=== PATIENT | male | born 1990 | race Caucasian/White ===

== ENCOUNTER 2021-12-23 22:22 | Emergency (ER) | payer OTHER, SELFPAY ==
[2021-12-23 22:30] VITALS: BP 116/69; PULSE 86; RESP 20; TEMP 36.7; O2SAT 99; BMI 36.0
== END 2021-12-24 01:17 | disposition left against medical advice (07) ==
PROVIDERS: Emergency Provider Emergency Medicine; PCP Internal Medicine
DX: R09.89 Other specified symptoms and signs involving the circulatory and respiratory systems (principal); F12.90 Cannabis use, unspecified, uncomplicated
CPT/HCPCS: 99281

== ENCOUNTER 2024-01-22 13:45 | Outpatient (AMB) | payer OTHER, SELFPAY ==
[2024-01-22 15:12] VITALS: BP 122/80; PULSE 72; O2SAT 98; BMI 37.7
--- NOTE | 2024-01-22 15:12 | AM.OFFWIN_ITS ---
Intake Vital Signs 01/22/24 15:12 Height 5 ft 7 in Weight 241 lb BMI 37.7 BP 122/80 Blood Pressure Location Lt brachial Position Sitting Pulse 72 Pulse Source Pulse Oximeter Pulse Oximetry (%) 98 Oxygen Delivery Method Room Air Intake Visit Reasons: EP RT testicle pain Intake Note: Patient here for right testicle pain that has been present for about 4 days. Patient Tobacco Use Status: Current someday Tobacco user Allergies clomipramine Allergy (Intermediate, Verified 01/22/24 15:13) inadequate response divalproex sodium [Depakote] Allergy (Intermediate, Verified 01/22/24 15:13) weight gain Seasonal Allergies Allergy (Intermediate, Verified 01/22/24 15:13) runny nose, cough Do you need a note to return to daycare/school/sports/work: Yes HPI EP RT testicle pain HPI Details This note is constructed using voice recognition software. While every effort has been made to ensure accuracy, accounting methods analyst errors may have been included. The patient is a 33 year old male who presents to the clinic today with right posterior testicle pain for the past 4 days intermittently. He reports the pain to be mild in nature, and worsened if he touches the area. He is not sexually active for several years. He has no discharge from the penis, no penile lesions. He has not been injured to the area. He denies fever, chills, joint pain, change in urine or bowel pattern. [facility] Medical History (Updated 05/06/23 @ 08:46 by Enrico Stratton PA-C) Minimal depression ADD (attention deficit disorder) Insomnia Morbid obesity Surgical History No pertinent past surgical history Family History Father Diabetes Mother No problems noted. Maternal Grandmother Diabetes Foot amputation status Paternal Grandfather Leukemia Paternal Uncle Pancreatic cancer Family/Other Substance use disorder Social History (Updated 12/26/20 @ 16:50 by Lesley Bowen MD) Housing: House Alcohol intake: current Alcohol intake frequency: a few times a month Alcohol type: beer and hard liquor Patient Tobacco Use Status: Current someday Tobacco user Tobacco use type: Cigarette Cigarettes Per Day: 10 e-Cigarette/Vaping Use: Never Used Second Hand Smoke Exposure: No service: No Current occupational status: unemployed Review of Systems Const All systems reviewed & are unremarkable except as noted in HPI and below Physical Exam Vital Signs: Last Vital Signs Pulse 72 01/22/24 15:12 BP 122/80 01/22/24 15:12 Pulse Ox 98 01/22/24 15:12 Oxygen Delivery Method Room Air 01/22/24 15:12 BMI result Body Mass Index 37.7 Const General: cooperative, healthy appearing, comfortable, no acute distress and well developed Orientation/consciousness: patient oriented x3 Limitations: no limitations HEENT Head: Yes normal to inspection Ears: hearing grossly normal bilaterally General nose exam: Normal external nose present Face and sinus: Yes normal facial exam Eyes General: appearance normal, both eyes and all related structures Neck Neck: Yes normal visual inspection and Yes full ROM Resp Effort & Inspection: normal respiratory effort and able to speak in complete sentences Penis: normal penis Scrotum: scrotum normal and testes descended bilaterally Testes: no epidiymal masses and epididymal tenderness on the right Skin General skin exam: no rashes or lesions noted Neuro General: patient oriented x3 Assessment & Plan Assessment & Plan (1) Epididymitis: Code(s): N45.1 - Epididymitis Plan: Antibiotics sent for non sexually active male with epididymitis. Advised patient to try NSAIDs and ice for symptomatic management. Advised ER with sudden acute worsening of pain. Advised follow up with worsening or failure to resolve. Plan See above for full details and plan. Medications: New levofloxacin 500 mg PO DAILY 10 days 10 tabs 0RF Coding Level of Care Code Est Pt Level 3 (91897) Diagnoses Epididymitis N45.1
== END 2024-01-22 16:06 | disposition home or self-care (01) ==
PROVIDERS: PCP Internal Medicine; Visit Provider Registered Nurse
DX: N45.1 Epididymitis (principal)

== ENCOUNTER → 2024-01-22 13:45 | Outpatient (BNVA) | payer OTHER, SELFPAY | PROVIDERS: PCP Internal Medicine; Visit Provider Registered Nurse | DX: N45.1 Epididymitis (principal) | CPT/HCPCS: 99212 ==

== ENCOUNTER → 2024-09-04 09:25 | Outpatient (BNV) | payer OTHER, SELFPAY | PROVIDERS: PCP Internal Medicine; Visit Provider Radiology Diagnostic Radiology | DX: R10.9 Unspecified abdominal pain (principal); R15.2 Fecal urgency; Z80.0 Family history of malignant neoplasm of digestive organs; K59.00 Constipation, unspecified | CPT/HCPCS: 74018 ==

== ENCOUNTER 2024-09-04 09:49 | Emergency (ER) | payer OTHER, SELFPAY ==
--- NOTE | ~2024-09-04 | XR_ITS ---
EXAMINATION: XR ABDOMEN KUB CLINICAL INDICATION: ? constipation COMPARISON: None available. TECHNIQUE: AP view of the abdomen. FINDINGS: Bowel gas pattern is normal/nonspecific. There is no focally dilated loop. There is no significant stool burden. No organomegaly or large abdominal mass. No abnormal soft tissue calcifications identified. Imaged lung bases are clear. No osseous abnormalities. XR/XR KUB IMPRESSION: Normal KUB radiograph. Electronically signed by: Sinan Gonzalez MD 09/04/2024 10:31 AM EDT
--- NOTE | ~2024-09-04 | CT_ITS ---
EXAMINATION: CT ABDOMEN AND PELVIS WITH CONTRAST CLINICAL INFORMATION: Abdominal pain, familial hx of colon cancer, increased urgency for bowel movements COMPARISON: X-ray September 04, 2024, same day TECHNIQUE: Multidetector volumetric images were obtained from the superior aspect of the liver through the pubic symphysis following administration 85 mL of Omnipaque 350 intravenous contrast. Sagittal and coronal reformatted images were obtained on the technologist's workstation. Oral contrast: No This CT examination was performed using dose optimization techniques as appropriate, variously including the following: *Automated exposure control *Adjustment of mA and/or kV according to patient size (this includes techniques or standardized protocols for targeted exams where dose is matched to indication/reason for exam; i.e. extremities or head) *Use of iterative reconstruction technique DLP: 596 mGY*cm FINDINGS: LUNG BASES: The visualized lung bases are unremarkable. LIVER, GALLBLADDER, AND BILIARY TREE: The liver is normal in size, shape, and attenuation. No focal hepatic lesion or biliary ductal dilatation is present. The gallbladder is unremarkable with no evidence of radiopaque gallstones, gallbladder wall thickening, or obvious pericholecystic inflammatory changes. PANCREAS: Unremarkable. SPLEEN: Unremarkable. ADRENAL GLANDS: Unremarkable. KIDNEYS AND URETERS: The kidneys are normal in size, shape, and attenuation. No hydronephrosis, hydroureter, or calculi seen. No perinephric stranding. BLADDER: Unremarkable. GASTROINTESTINAL TRACT: A few scattered pseudodiverticula are present in the descending colon. The appendix is visualized and within normal limits. ABDOMINAL WALL: No significant hernia is appreciated. LYMPH NODES: Normal. VASCULAR: Unremarkable. PELVIC VISCERA: Unremarkable. OSSEOUS STRUCTURES: Unremarkable. CT/CT abdomen pelvis w IV con IMPRESSION: Unremarkable CT abdomen and pelvis. CT is not screening method for colon cancer. Minimal pseudodiverticula in the descending colon. Fleischner guidelines were followed. Electronically signed by: Renzo Watson MD 09/04/2024 12:21 PM EDT
[2024-09-04 09:55] VITALS: BP 118/67; PULSE 74; RESP 16; TEMP 36.3; O2SAT 97; BMI 32.1
--- NOTE | 2024-09-04 10:04 | ED_ITS ---
HPI - General Adult General Chief complaint: General Medical Stated complaint: Constipation Time Seen by Provider: 09/04/24 10:04 Source: patient Mode of arrival: ambulatory Limitations: no limitations History of Present Illness ED Provider: Hannah Hudson PA-C HPI narrative: Patient is a 34 year old male with past medical history of ADD, insomnia, and depression presenting to the ER on 09/04 with chief complaint of constipation. His last bowel movement was 4 days ago and normal. He has been passing gas daily. He has been more constipated than usual for the past 2 weeks. He does have recent dietary change within this time frame; he has been eating a lot of [employer] (burgers and fries) where he works and reports a diet low in fiber in the past few weeks. He denies past history of abdominal surgeries. He has noticed new bright red on toilet tissue for the past few weeks but he feels this is because of wiping too hard. He is unsure if he has hemorrhoids. He reports family history of colon tumor in his mother. He denies melena, gross blood in his stools, change in stool caliber, nausea, vomiting, diarrhea, abdominal pain, fevers, chills, or any other symptoms. Relieving factors: none Exacerbating factors: none Associated symptoms: denies other symptoms Treatments prior to arrival: none Related Data Previous Rx's ?Medication ?Instructions ?Recorded bupropion HCl 150 mg 24 hr tablet, 150 mg PO QAM 90 da ys #90 tabs 12/26/20 extended release clonidine HCl 0.1 mg tablet 0.1 mg PO BEDTIME 90 days #90 tabs 12/26/20 clotrimazole-betamethasone 1 1 appl topical BID 30 day s #45 07/17/23 %-0.05 % topical cream grams levofloxacin 500 mg tablet 500 mg PO DAILY 10 days #10 tabs 01/22/24 Allergies Allergy/AdvReac Type Severity Reaction Status Date / Time clomipramine Allergy Intermediate inadequate Verified 09/04/24 09:56 response divalproex sodium (Depakote) Allergy Intermediate weight gain Verified 09/04/24 09:56 Seasonal Allergies Allergy Intermediate runny Verified 09/04/24 09:56 nose, cough Review of Systems 2 Constitutional: Constitutional: Reports no additional constitutional complaints, Denies chills, Denies fever(s) and Denies night sweats Eyes: Eyes: Reports no additional eye complaints, Denies blurry vision, Denies change in vision, Denies diplopia, Denies eye discharge, Denies loss of vision and Denies eye pain ENT: Denies dizziness Cardiovascular: Cardiovascular: Reports no additional cardiovascular complaints, Denies chest pain, Denies lightheadedness, Denies Loss of Consciousness and Denies dyspnea Respiratory: Respiratory: Reports no additional respiratory complaints and Denies dyspnea Gastrointestinal: Gastrointestinal: Reports no additional gastrointestinal complaints, Reports abdominal pain, Denies melena, Denies hematochezia, Denies change in bowel habits, Reports change in stool character and Reports constipation Genitourinary: Genitourinary: Reports no additional male genitourinary complaints, Denies hematuria, Denies oliguria, Denies difficulty urinating, Denies dysuria, Denies urinary frequency, Denies urinary hesitancy, Denies urinary incontinence and Denies urinary urgency Musculoskeletal: Musculoskeletal: Reports no additional musculoskeletal complaints, Denies numbness and Denies tingling Neurologic: Denies dizziness, Denies loss of vision, Denies numbness and Denies tingling Psychiatric: Psychiatric: Reports no additional psychiatric complaints Endocrine: Endocrine: Reports no additional endocrine complaints Hematologic/Lymphatic: Hematologic/Lymphatic: Reports no additional hematologic/lymphatic complaints Allergic/Immunologic: Allergic/Immunologic: Reports no additional allergic/immunologic complaints [facility] Past Medical History Attestation statement: The following information was validated with the patient. Source: old records reviewed and nursing notes reviewed Medical History Minimal depression ADD (attention deficit disorder) Insomnia Morbid obesity Surgical History No pertinent past surgical history Family History Family History Father Diabetes Mother No problems noted. Maternal Grandmother Diabetes Foot amputation status Paternal Grandfather Leukemia Paternal Uncle Pancreatic cancer Family/Other Substance use disorder Social History Social History Housing: House Alcohol intake: current Alcohol intake frequency: a few times a month Alcohol type: beer and hard liquor Patient Tobacco Use Status: Current someday Tobacco user Tobacco use type: Cigarette Cigarettes Per Day: 10 e-Cigarette/Vaping Use: Never Used Second Hand Smoke Exposure: No Advance Directives: No Advance Directives Information Provided: Yes Do you have a plan to hurt others: No Plan service: No Current occupational status: unemployed Physical Exam ED Vital Signs: Vital Signs - 24 hr 09/04/24 09:55 09/04/24 12:00 09/04/24 13:27 Temperature 97.3 F 97.8 F 97.8 F Pulse Rate 74 58 58 Respiratory Rate 16 18 18 Blood Pressure 118/67 127/74 127/74 Pulse Oximetry 97 99 99 Oxygen Delivery Method Room Air Room Air Room Air BMI result Body Mass Index 32.1 Const General: cooperative, no acute distress, alert and awake Nutritional Appearance: well nourished Orientation/consciousness: patient oriented x3 HENMT Head: Yes normal to inspection and Yes atraumatic Ears: hearing grossly normal bilaterally and external ears normal General nose exam: Normal external nose present, no nasal discharge noted and no epistaxis Face and sinus: Yes normal facial exam, No abrasion and No laceration Mouth: Normal oral and palatal mucosa present, no drooling and no muffled voice Eyes General: appearance normal, both eyes and all related structures Periorbital: periorbital findings normal Eyelids: Yes eyelids normal Conjunctivae: conjunctivae normal Pupils: Equal, round and reactive pupils present EOM: EOMs intact bilaterally Neck Neck: Yes normal visual inspection, Yes full ROM and Yes no lymphadenopathy Resp Effort & Inspection: normal respiratory effort and able to speak in complete sentences GI Palpation (GI): Soft to palpation, nontender, no guarding and not rigid Neuro General: patient oriented x3, moves all extremities and CN's II-XI intact bilaterally Cranial nerves: Yes Equal, round and reactive pupils present Cognition (Neuro): normal cognition Extrem General: Yes normal to inspection, Yes full ROM and Yes capillary refill normal Psych Appearance: grossly normal Mental Status: mental status grossly normal Affect: normal affect Attitude: cooperative Thought process: Normal thought process present Thought content: Normal thought content present Insight: Good insight present (Psych) Medications Administered Discontinued Medications Generic Name Dose Route Start Last Admin Trade Name Freq PRN Reason Stop Dose Admin Iohexol 100 ml 09/04/24 12:04 09/04/24 12:05 Iohexol 350 Mg/Ml 100 Ml Infus..Btl IV 09/04/24 12:05 85 ml ONCE ONE Administration Medical Decision Making Medical Decision Making [facility] Narrative: Patient is a 34 year old male with past medical history of ADD, insomnia, and depression presenting to the ER on 09/04 with chief complaint of constipation. Patient's physical exam was unremarkable. Patient's blood work was unremarkable. Patient's KUB x-ray showed no acute process. Patient's CT abdomen/pelvis showed no acute process and of note the reading radiologist commented that a CT abdomen/pelvis is not the correct modality for the diagnosis of colon cancer. I explained to the patient that while a CT scan of the abdomen is not the most ideal for diagnosis of colon cancer, it does rule out immediate obstruction that could be secondary to a large tumor / tumor burden and that is why we obtained the study. I explained my physical exam findings as well as all test results to the patient. I answered all questions asked by the patient. I stressed the importance of the patient taking his medication as directed (either prescribed or as the over the counter packaging recommends). I stressed the importance of the patient following up with his primary care provider and a GI specialist - specifically to get a colonoscopy (the more definitive colon cancer testing modality). I stressed the importance of the patient returning to the emergency department immediately if his symptoms were to worsen or if he were to develop any dizziness, shortness of breath, difficulty breathing, chest pain, blurry vision, loss of vision, nausea, vomiting, abdominal pain, fever, chills, back pain, or any other complaints. Patient verbalized agreement and understanding with this treatment plan and discharge. Differential Diagnosis Differential Diagnoses: The differential diagnosis associated with the presentation includes Abdominal pain Bowel obstruction Colitis Admission/Observation Consideration of admission/observation: Escalation of care including admission/observation considered Patient would have been admitted to the hospital had his work up had any findings where hospital admission was appropriate and his clinical presentation warranted hospital admission. Lab Data [facility] Lab Attestation statement: I reviewed the patient's lab results. My interpretation of these results are in the MDM Rationale portion of this note. 09/04/24 11:08 09/04/24 11:08 Labs: Lab Results 09/04/24 Range/Units 11:08 WBC 7.6 (4.8-10.8) X10*3/uL RBC 4.48 L (4.60-5.80) X10*6/uL Hgb 14.5 (14.0-18.0) g/dl Hct 40.2 L (42.0-52.0) % MCV 89.7 (80.0-98.0) fL MCH 32.4 (27.0-33.0) pg MCHC 36.1 H (31.0-36.0) g/dl RDW 12.0 (11.0-16.0) % Plt Count 242 (160-400) X10*3/uL MPV 9.1 L (9.4-12.4) fL Immature Gran % (Auto) 0.3 (0.0-0.4) % Neut % (Auto) 63.0 (45-73) % Lymph % (Auto) 20.8 (20-40) % [place] % (Auto) 8.0 (2-11) % Eos % (Auto) 6.8 H (0-4) % Baso % (Auto) 1.1 (0-2) % Lymph # (Auto) 1.6 (1.2-4.9) X10*3/uL [place] # (Auto) 0.6 (0.1-1.2) X10*3/uL Eos # (Auto) 0.5 H (0.0-0.4) X10*3/uL Baso # (Auto) 0.1 (0.0-0.2) X10*3/uL Abs Immat Gran (auto) 0.02 (0.00-0.03) X10*3/uL Absolute Neuts (auto) 4.8 (2.0-8.3) x10*3/uL Absolute Nucleated RBC 0.000 (0.0-0.012) X10*3/uL Nucleated RBC % (auto) 0.0 (0.0-0.2) /100WBC Sodium 142 (135-145) mmol/L Potassium 4.0 (3.3-5.1) mmol/L Chloride 110 H (96-108) mmol/L Carbon Dioxide 25 (22-29) mmol/L Anion Gap 11 L (12-20) BUN 19 H (9-16) mg/dL Creatinine 0.81 (0.5-1.4) mg/dL Estim Creat Clear Calc 142.3 Estimated GFR > 60 Random Glucose 103 (60-115) mg/dL Calcium 9.2 (8.4-10.2) mg/dL Total Bilirubin 0.3 (0.0-1.0) mg/dL AST 27 (5-37) U/L ALT 19 (0-40) U/L Alkaline Phosphatase 75 (39-117) U/L Total Protein 6.5 (6.5-8.0) g/dL Albumin 4.5 (3.5-5.0) g/dL Independent Interpretation I performed an independent interpretation of an: Plain X-Ray and CT Scan Interpretation: My interpretation is in agreement with the radiologist's impression of these imaging studies. L EXAMINATION: XR ABDOMEN KUB CLINICAL INDICATION: ? constipation COMPARISON: None available. TECHNIQUE: AP view of the abdomen. FINDINGS: Bowel gas pattern is normal/nonspecific. There is no focally dilated loop. There is no significant stool burden. No organomegaly or large abdominal mass. No abnormal soft tissue calcifications identified. Imaged lung bases are clear. No osseous abnormalities. XR/XR KUB IMPRESSION: Normal KUB radiograph. Electronically signed by: Sinan Gonzalez MD 09/04/2024 10:31 AM EDT Dictated By: Sinan Gonzalez MD Signed By: Electronically signed by Sinan Gonzalez MD 09/04/24 1031 Report Number: [id number]: Total DLP = 596.00 mGy-cm EXAMINATION: CT ABDOMEN AND PELVIS WITH CONTRAST CLINICAL INFORMATION: Abdominal pain, familial hx of colon cancer, increased urgency for bowel movements COMPARISON: X-ray September 04, 2024, same day TECHNIQUE: Multidetector volumetric images were obtained from the superior aspect of the liver through the pubic symphysis following administration 85 mL of Omnipaque 350 intravenous contrast. Sagittal and coronal reformatted images were obtained on the technologist's workstation. Oral contrast: No This CT examination was performed using dose optimization techniques as appropriate, variously including the following: *Automated exposure control *Adjustment of mA and/or kV according to patient size (this includes techniques or standardized protocols for targeted exams where dose is matched to indication/reason for exam; i.e. extremities or head) *Use of iterative reconstruction technique DLP: 596 mGY*cm FINDINGS: LUNG BASES: The visualized lung bases are unremarkable. LIVER, GALLBLADDER, AND BILIARY TREE: The liver is normal in size, shape, and attenuation. No focal hepatic lesion or biliary ductal dilatation is present. The gallbladder is unremarkable with no evidence of radiopaque gallstones, gallbladder wall thickening, or obvious pericholecystic inflammatory changes. PANCREAS: Unremarkable. SPLEEN: Unremarkable. ADRENAL GLANDS: Unremarkable. KIDNEYS AND URETERS: The kidneys are normal in size, shape, and attenuation. No hydronephrosis, hydroureter, or calculi seen. No perinephric stranding. BLADDER: Unremarkable. GASTROINTESTINAL TRACT: A few scattered pseudodiverticula are present in the descending colon. The appendix is visualized and within normal limits. ABDOMINAL WALL: No significant hernia is appreciated. LYMPH NODES: Normal. VASCULAR: Unremarkable. PELVIC VISCERA: Unremarkable. OSSEOUS STRUCTURES: Unremarkable. CT/CT abdomen pelvis w IV con IMPRESSION: Unremarkable CT abdomen and pelvis. CT is not screening method for colon cancer. Minimal pseudodiverticula in the descending colon. Fleischner guidelines were followed. Electronically signed by: Renzo Watson MD 09/04/2024 12:21 PM EDT RP Dictated By: Renzo Watson MD Signed By: Electronically signed by Renzo Watson MD 09/04/24 1221 Radiology Impression Discussion of test interpretation with radiology: I have reviewed the radiologist's reading. Discharge Plan Discharge Clinical Impression: Abdominal pain Qualifiers: Abdominal location: generalized Qualified Code(s): R10.84 - Generalized abdominal pain Patient Disposition: Home, Self-Care Instructions: Abdominal Pain (ED) Additional Instructions: Follow up with your primary care provider and a GI specialist. Return to the emergency department immediately if your symptoms worsen or if you develop any numbness, tingling, dizziness, shortness of breath, difficulty breathing, chest pain, blurry vision, loss of vision, nausea, vomiting, abdominal pain, fever, chills, back pain, or any other complaints. Please see the information below about our Patient Portal. If you are not yet enrolled in the [facility] Patient Portal, you will receive an enrollment email invitation following your visit to any [facility] setting. You may also self-enroll in the Patient Portal by visiting our website: [email or web address] The following information is required to access the Patient Portal: - Your [facility] Medical Record Number - Your personal home email address (must match what is in your electronic medical record, Registration staff can assist with this) - Name - Date of Capabilities of the Patient Portal: - Message some providers - View upcoming appointments - Access your health summary, medical history, and visit history - View current conditions and allergies - View procedure and lab results - View your medications, including guidelines, side effects, and precautions - Complete pre-appointment questionnaires requested by your provider - Ready summary reports of your office visits and procedures To access the Patient Portal Mobile Latisha, follow these directions: - Search [employer] in the Latisha Store or [employer] Store - Download the Latisha - Search for [facility] - Enter your login/password Prescriptions: No Action clotrimazole-betamethasone 1-0.05 % cream 1 appl topical BID 30 Days Qty: 45 0RF clonidine HCl 0.1 mg tablet 0.1 mg PO BEDTIME 90 Days Qty: 90 1RF bupropion HCl 150 mg tablet extended release 24 hr 150 mg PO QAM 90 Days Qty: 90 1RF levofloxacin 500 mg tablet 500 mg PO DAILY 10 Days Qty: 10 0RF Referrals: [facility] [Provider Group, Gastroenterology] Lesley Blackwell MD [Primary Care Provider, Internal Medicine] Stand Alone Forms: Work/School Release Interventions: ED Discharge Assessment Last Done: 09/04/24 13:27 Discharge Date/Time: 09/04/24 13:27 Print Language: Amharic
--- OUTSIDE RECORDS SUMMARY | 2024-09-04 10:54 | XMS_ITS | Clinical Summary ---
[place] [address] Care Team Providers Care Terminal Operator Name Role Phone Unknown Primary Care Provider Unavailabl e Social History Tobacco Use Types Packs/Day Years Used Date Smoking Tobacco: Never Assessed Sex and Gender Information Value Date Recorded Sex Assigned at Not on file Legal Sex Male 7:25 AM EST Gender Identity Not on file Sexual Orientation Not on file Last Filed Vital Signs Vital Sign Reading Time Taken Comments Blood Pressure 122/66 06/29/2011 4:00 PM EDT Sourced from [employer] Conversion Pulse - - Temperature - - Respiratory Rate - - Oxygen Saturation - - Inhaled Oxygen Concentration - - Weight 126.1 kg (278 lb) 06/29/2011 4:0 0 PM EDT Sourced from [employer] Conversion Height 167.6 cm (5' 6 ) 06/05/2010 3:00 PM EDT Sourced from [employer] Conversion Body Mass Index 44.87 06/05/2010 3:00 PM EDT Plan of Treatment Health Maintenance Due Date Last Done Comments HIV screen 2010 Hepatitis C Screening 2010 Hepatitis B vaccine (0-59 yrs) and Risk (1) 04/24/2011 Tetanus/Diphtheria/Pertussis Vaccines (1 - Tdap) 04/23 Covid-19 Vaccine (1 - 2023-25 season) 2023 Influenza (Flu) vaccine (1 o f 1 - Influenza standard series) 10/19/2024 Care Teams Terminal Operator Relationship Specialty Start Date End Date Unknown None PCP - General 06/24/17
--- OUTSIDE RECORDS SUMMARY | 2024-09-04 10:54 | XMS_ITS | Clinical Summary ---
Author Organization [facility] Address [address] [place] [id number] Phone Care Team Providers Care [employer] Obie[employer] Developer Name Role Phone Unavailable Primary Care Provider Unavailabl e Immunizations Immunization Administration Dates Next Due DTP 09/27/1997, 4,1992,08/27,1992 H1N1 06/21/2009 Hep B, ped/adol 1992,1992,1992 Hib (PRP-T) 07/28/1993, 3,1992,06/23 IPV 09/27/1997, 4,1992,06/23 MMR 04/27/1996,07/28/1993 Meningococcal Conj (Menactra) MCV4P 10/25/2006 Td (adult) (MBL), 2 Lf tetan us toxoid, PF, adsorbed 12/06/2003 Tdap 11/07/2007 Varicella 04/27/1996 Family History Relation Name Status Comments Brother Alive Brother: ADD/AD HD Cousin Cousin: Asthma Father Alive Father: Alive a nd well Maternal Grandfather Materna l grandfather: Diabetes mellitus Maternal Grandmother Materna l grandmother: Diabetes mellitus, Obesity Mother Alive Mother: Alive a nd well Paternal Grandfather Paterna l uncle: Asthma, Diabetes mellitus Paternal Grandmother Paterna l grandmother: Diabetes mellitus Social History Tobacco Use Types Packs/Day Years Used Date Smoking Tobacco: Never Assessed Sex and Gender Information Value Date Recorded Sex Assigned at Not on file Legal Sex Male 4:34 PM EDT Gender Identity Not on file Sexual Orientation Not on file Last Filed Vital Signs Vital Sign Reading Time Taken Comments Blood Pressure 124/80 06/21/2009 12:00 AM EDT Pulse - - Temperature - - Respiratory Rate - - Oxygen Saturation - - Inhaled Oxygen Concentration - - Weight 115 kg (253 lb) 07/27/2009 12:00 AM EDT Height 168.9 cm (5' 6.5 ) 06/21/2009 12:00 AM ED T Body Mass Index - - Plan of Treatment Health Maintenance Due Date Last Done Comments Varicella Vaccines (2 of 2 - 2-dose childhood series) 07/20/1996 04/27/1996 DTaP,Tdap,and Td Vaccines (7 - Td or Tdap) 11/06/2017 11/07/2007, 12/06/2003, 09/27/1997, Additional history exists COVID-19 Vaccine (2023- season) 2023 Influenza Vaccines (#1) 2024 Hepatitis B Vaccines Completed 1992, 1992, 1992 HIB Vaccines Completed 07/28/1993, 10/19, 1992, Additional history exists MMR Vaccines Completed 04/27/1996, 07/28/1993 IPV Vaccines Completed 09/27/1997, 10/19, 1992, Additional history exists Meningococcal Vaccine Aged Out 10/25/2006 No edouard kate eligible based on patient's age to complete this topic HPV Vaccines Aged Out No longer eligi ble based on patient's age to complete this topic Hepatitis A Vaccines Aged Out No long er eligible based on patient's age to complete this topic Men B Vaccine Aged Out No longer elig ible based on patient's age to complete this topic Pneumococcal Vaccine Aged Out No long er eligible based on patient's age to complete this topic
[2024-09-04 11:14] LABS: MANUAL DIFF FLAG NO
[2024-09-04 11:19] LABS: Hematocrit 40.2 % (42.0-52.0); Hemoglobin 14.5 g/dl (14.0-18.0); Imm Gran Abs Auto 0.02 X10*3/uL (0.00-0.03); Imm Gran Pct Auto 0.3 % (0.0-0.4); Lymphocytes Absolute Auto 1.6 X10*3/uL (1.2-4.9); Mean Corpuscular HGB Conc 36.1 g/dl (31.0-36.0); Mean Corpuscular Hemoglobin 32.4 pg (27.0-33.0); Mean Corpuscular Volume 89.7 fL (80.0-98.0); NRBC Abs Auto 0.000 X10*3/uL (0.0-0.012); NRBC Pct Auto 0.0 /100WBC (0.0-0.2); Platelet Count 242 X10*3/uL (160-400); Red Blood Count 4.48 X10*6/uL (4.60-5.80); White Blood Count 7.6 X10*3/uL (4.8-10.8)
[2024-09-04 11:32] LABS: Alanine Aminotransferase 19 U/L (0-40); Albumin Level 4.5 g/dL (3.5-5.0); Alkaline Phosphatase 75 U/L (39-117); Anion Gap 11 (12-20); Aspartate Amino Transferase 27 U/L (5-37); Blood Urea Nitrogen 19 mg/dL (9-16); Calcium 9.2 mg/dL (8.4-10.2); Carbon Dioxide 25 mmol/L (22-29); Chloride 110 mmol/L (96-108); Creatinine Clr Calc Pharmacy 142.3; Estimated Glomerular Filt Rate > 60; Potassium 4.0 mmol/L (3.3-5.1); Sodium 142 mmol/L (135-145); Total Protein 6.5 g/dL (6.5-8.0)
[2024-09-04 12:00] VITALS: BP 127/74; PULSE 58; RESP 18; TEMP 36.6; O2SAT 99
[2024-09-04] MEDS: iohexoL 350 MG/ML 100 ML INFUS..BTL IV (12:05)
[2024-09-04 13:27] VITALS: BP 127/74; PULSE 58; RESP 18; TEMP 36.6; O2SAT 99
== END 2024-09-04 13:27 | disposition home or self-care (01) ==
PROVIDERS: Physician Assistant Medical; Emergency Provider Emergency Medicine; PCP Internal Medicine
DX: R10.84 Generalized abdominal pain (principal); F17.210 Nicotine dependence, cigarettes, uncomplicated
CPT/HCPCS: 36415; 74018; 74177; 80053; 85025; 99283; 99284; Q9967